=== PATIENT | female | born 1950 | race Caucasian/White ===

== ENCOUNTER 2018-08-08 08:26 | Day surgery (SDC) | payer MEDICARE, BC ==
[2018-08-07 09:53] VITALS: BMI 28.9
[~2018-08-08 08:26] MED LIST: ALPRAZolam 0.25 MG TAB PO PRN; ALPRAZolam 0.5 MG TAB PO PRN; ASPIRIN 325 MG TAB PO ONE; ATORVASTATIN 80 MG TAB PO ONE; NITROGLYCERIN SL TABS 0.4 MG TAB SUBLINGUAL PRN; SODIUM CHLORIDE 0.9% 1,000 ML in EMPTY BAG 1 BAG IV ONE
[2018-08-08] MEDS ORDERED: SODIUM CHLORIDE 0.9% 1,000 ML IV ONE (08:59)
[2018-08-08] MEDS ORDERED: VERAPAMIL 2.5 MG/ML 2 ML AMP ONE (10:44)
[2018-08-08] MEDS ORDERED: HEPARIN SODIUM 1,000 UN/ML (10ML VL) ONE (10:44)
[2018-08-08] MEDS ORDERED: fentaNYL (PF) 50 MCG/ML 2 ML AMP ONE (10:44)
[2018-08-08] MEDS ORDERED: LIDOCAINE 1% INJ 10MG/ML (20 ML MDV) ONE (10:46)
[2018-08-08] MEDS: fentaNYL (PF) 50 MCG/ML 2 ML AMP IV ONE ×2 (10:50→11:29)
[2018-08-08] MEDS: MIDAZOLAM 2 MG/2 ML VIAL IV ONE ×2 (10:51→10:59)
[2018-08-08] MEDS ORDERED: LIDOCAINE 1% INJ 10MG/ML (20 ML MDV) SQ ONE (10:53)
[2018-08-08] MEDS ORDERED: HEPARIN SODIUM 1,000 UN/ML (10ML VL) IV ONE ×2 (10:54)
[2018-08-08] MEDS ORDERED: VERAPAMIL SYRINGE (5 MG/10 ML) INTRAARTER ONE (10:54)
[2018-08-08] MEDS ORDERED: IOPAMIDOL-370 100ML BTL INJ ONE ×3 (11:08→12:11)
[2018-08-08] MEDS ORDERED: CLOPIDOGREL 75 MG TAB ONE (11:10)
[2018-08-08] MEDS ORDERED: METOPROLOL TARTRATE 5 MG/5 ML VIAL IVP ONE ×2 (11:17→11:18)
--- NOTE | 2018-08-08 11:28 | P.CARDCATH ---
Date of Procedure: 08/08/18 Preoperative Diagnosis: New-onset angina Postoperative Diagnosis: Significant lesion involving the RCA in the mid and distal locations Procedure(s) Performed: Left heart catheterization without left ventriculography Description of Procedure: HISTORY: This is a 68-year-old female with history of previous myocardial infarction and a stent placement of the RCA was been experiencing left arm numbness resembling the symptoms that she had prior to the previous myocardial infarction. Patient is advised to have a cardiac catheterization or stress test. Patient preferred to have a cardiac catheterization CONSENT:I have discussed the risks, benefits and alternative therapies for the above-mentioned procedure and for both sedation/analgesia as well as necessary blood product administration, if indicated, as they pertain to this patient. The patient has indicated understanding and acceptance of the risks and procedures discussed. PROCEDURE: Patient was brought to the lab in a fasting state. Patient was given some IV sedation. The right groin is infiltrated with lidocaine and right femoral artery was entered using Seldinger technique. A 6-Yi catheter was left in place and selective coronary arteriography and left ventriculography was performed. Patient tolerated the procedure well. No immediate complications were noted and patient was transferred to [facility] in a stable condition Conscious Sedation: Versed 2mg Fentanyl 50 g Duration 19minutes HEMODYNAMICS: The aortic pressure is about 170/80. Left ankle end-diastolic pressure is about 12-14. There was no gradient across the aortic valve SELECTIVE CORONARY ARTERIOGRAPHY: LEFT MAIN: This is normal in length and free of any occlusive disease THE LEFT ANTERIOR DESCENDING CORONARY ARTERY:. This is a good caliber vessel giving rise to good-sized diagonal branch. Mild plaque noted in the proximal to mid LAD without any critical lesions THE LEFT CIRCUMFLEX AND IS CORONARY ARTERY: This a good caliber vessel giving rise good-sized OM branch. The OM branch is about 30-40% stenosis THE RIGHT CORONARY ARTERY:. This is a good caliber vessel with 2 areas of stenosis involving the mid portions within the stent and distally within the the distal end of the stent extended into the distal portion of the RCA before bifurcation into PDA and PLV LEFT VENTRICULOGRAPHY: Not performed FINAL IMPRESSION:. Critical lesion involving the mid and distal RCA mostly within the stent PLAN:. The stenting of the RCA to be done by Dr. Freeman PROGNOSIS: Fair
[2018-08-08] MEDS ORDERED: CLOPIDOGREL 75 MG TAB PO ONE (11:29)
[2018-08-08] MEDS ORDERED: BIVALIRUDIN 250 MG in SODIUM CHLORIDE 0.9% 50 ML IV ONE (11:34)
[2018-08-08] MEDS ORDERED: BIVALIRUDIN BOLUS 250 MG/50 ML IV ONE (11:34)
[2018-08-08] MEDS ORDERED: NITROGLYCERIN SL TABS 0.4 MG TAB SUBLINGUAL ONE ×2 (11:46→11:47)
[2018-08-08] MEDS ORDERED: NITROGLYCERIN 1000MCG/10ML SYRINGE INTRACORON ONE (11:51)
[2018-08-08] MEDS ORDERED: RX INFO: IV CONTRAST WAS GIVEN 1 EACH MISC MISCELLANE PRN (12:23)
[2018-08-08] MEDS ORDERED: ZOLPIDEM 5 MG TAB PO PRN (12:23)
[2018-08-08] MEDS ORDERED: ATROPINE SULFATE 0.1 MG/ML 10ML SYRINGE IV PRN (12:23)
[2018-08-08] MEDS ORDERED: MAG HYDROX/AL HYDROX/SIMETH 30 ML CUP PO PRN (12:23)
[2018-08-08] MEDS ORDERED: NITROGLYCERIN SL TABS 0.4 MG TAB SUBLINGUAL PRN (12:23)
[2018-08-08] MEDS ORDERED: SODIUM CHLORIDE 0.9% 1,000 ML IV SCH (12:30)
--- NOTE | 2018-08-08 12:48 | PTCA ---
PERCUTANEOUSTRANS CORORONARY ANGIOGRAPHY Mrs. Talley is a 68-year-old female with a known history of coronary artery disease, status post inferior myocardial infarction and stenting in February 2008, who recently has been complaining of episode of discomfort similar to what she had in 2007, underwent cardiac catheterization by Dr. Weiss and was found to have significant obstructive disease involving the distal and mid right coronary artery. In view of that, recommendation was made regarding angioplasty and stenting. The procedure as well as the risks and the complications were discussed with the patient who is in full understanding and agreement. PROCEDURE: A 6-Luxembourgish FR4 guiding catheter introduced in the system after cannulating the right coronary ostium, a 0.014 balanced medium weight J-wire was advanced across the lesion positioned in the right PDA. Following that, a 2.5 x 12 mm Trek balloon was advanced and 2 inflations at 10 atmospheres were done. Following, the balloon was removed and a 2.75 x 15 mm Xience Lora stent was deployed distally and postdilated at 16 atmospheres following that the balloon was removed and a 2.75 x 18 mm Xience Lora stent was advanced in the mid segment and deployed and postdilated at 16 atmospheres and proximal to that stent a 2.75 x 12 mm Xience Lora stent was deployed and postdilated at 16 atmospheres. The balloon was advanced into the mid segment and inflation up to 16 atmospheres were done. Following that and after appropriate wait, the balloon and the guidewire were withdrawn back in the guiding catheter. Images were obtained, repeated. Those images reveal stable successful stenting. At that point, the guiding catheter, the balloon and the guidewire removed. The sheath was removed. Hemostasis was obtained with deployment of a TR band. There was no immediate complication patient was returned to her room in stable condition. Of note, the patient received Angiomax per protocol as well as oral loading dose of clopidogrel. She had no significant chest discomfort, but she had mild EKG changes that resolved at the end of the procedure. RESULTS: 1. Successful stenting of the distal right coronary artery with reduction of stenosis from 80% to 0%. 2. Successful stenting of the mid right coronary artery with reduction of stenosis from 70% to 0%. RECOMMENDATION: Patient will be continued on aspirin, Plavix and statin. The importance of dual antiplatelet treatment was discussed with the patient and her family and they are in full understanding and agreement. Duration of procedure is 29 minutes. MMKINGSTONL / IJN: [id number] /
[2018-08-08] MEDS ORDERED: ACETAMINOPHEN TAB 325 MG TAB PO PRN (16:57)
[2018-08-08] MEDS: GABAPENTIN 300 MG CAP PO SCH (20:08)
[2018-08-09 07:08] LABS: Basophils % (A) 1 %; Eosinophils # (A) 0.3 k/uL (0-0.7); Eosinophils % (A) 4 %; Lymphocytes # (A) 2.7 k/uL (1.0-4.8); Lymphocytes % (A) 33 %; MCH 30.7 pg (25.0-35.0); MCHC 33.2 g/dL (31.0-37.0); MCV 92.5 fL (80.0-100.0); Mean Platelet Volume 6.8; Monocytes # (A) 0.4 k/uL (0-1.0); Monocytes % (A) 5 %; Neutrophils # (A) 4.5 k/uL (1.3-7.7); Neutrophils % (A) 55 %; Platelet Count 229 k/uL (150-450); RBC 3.89 m/uL (3.80-5.40); RDW 12.9 % (11.5-15.5); WBC 8.3 k/uL (3.8-10.6)
[2018-08-09 07:14] LABS: Calcium 8.8 mg/dL (8.4-10.2); Potassium 4.1 mmol/L (3.5-5.1)
[2018-08-09] MEDS ORDERED: PANTOPRAZOLE 40 MG TABLET PO SCH (07:30)
[2018-08-09] MEDS: GABAPENTIN 300 MG CAP PO SCH (07:38)
[2018-08-09] MEDS ORDERED: NON-FORMULARY DRUG (Vitamin B Complex [Vitamin B Complex] 1 EACH) PO SCH (09:00)
[2018-08-09] MEDS ORDERED: METOPROLOL SUCCINATE (ER) 25 MG TAB.ER.24H PO SCH (09:00)
[2018-08-09] MEDS ORDERED: SERTRALINE 50 MG TAB PO SCH (09:00)
[2018-08-09] MEDS ORDERED: ASPIRIN 81 MG PO SCH (09:00)
[2018-08-09] MEDS ORDERED: busPIRone HCl 5 MG TAB PO SCH (09:00)
[2018-08-09] MEDS ORDERED: ATORVASTATIN 80 MG TAB PO SCH (09:00)
[2018-08-09] MEDS ORDERED: LISINOPRIL 2.5 MG TAB PO SCH (09:00)
[2018-08-09] MEDS ORDERED: LORATADINE 10 MG TAB PO SCH (09:00)
[2018-08-09] MEDS ORDERED: buPROPion SR 150 MG TABLET.ER PO SCH (09:00)
--- NOTE | 2018-08-09 09:05 | P.DS ---
Providers Date of admission: 08/08/2018 Attending physician: Carl Weiss Consults: 08/08/18 12:23 Consult Physician Routine Consulting Provider: [facility] Consult Reason/Comments: Post Interventional patient Do you want consulting provider notified?: Already Contacted Placement Type Exists?: Yes Primary care physician: Benedicto [facility] Course: This 68-year-old female with history of previous ischemic heart disease and multiple stent placement in the RCA, was brought in for cardiac catheterization because of symptoms of numbness in the left arm suggestive of angina. Patient had a cardiac catheterization and was found to have critical lesion in the mid RCA within the stent and also in the distal RCA. Patient had a multiple stent placement by Dr. Freeman. Patient has done well. Her puncture site in the right wrist appear to be healing well. No hematoma and pulses intact. Lungs are clear. Heart is regular. No JVD. Patient is complaining of some vague chest discomfort which is very mild and is mildly is respirophasic. Patient will be discharged home. Continue current medical therapy. Follow-up in the office in one week. Plan - Discharge Summary Discharge Rx Participant: Yes New Discharge Prescriptions: New Atorvastatin [Lipitor] 80 mg PO DAILY #90 tab Nitroglycerin Sl Tabs [Nitrostat] 0.4 mg SUBLINGUAL Q5M PRN #25 tab PRN Reason: Chest Pain Clopidogrel [Plavix] 75 mg PO DAILY #90 tab Continue Metoprolol Succinate (ER) [Toprol XL] 25 mg PO DAILY Gabapentin [Neurontin] 300 mg PO BID busPIRone HCL 15 mg PO DAILY Loratadine [Claritin] 10 mg PO DAILY Lisinopril [Zestril] 2.5 mg PO DAILY Sertraline [Zoloft] 50 mg PO DAILY Aspirin EC [Ecotrin Low Dose] 81 mg PO DAILY Ascorbic Acid [Vitamin C] 500 mg PO DAILY buPROPion HCL [Wellbutrin SR] 150 mg PO DAILY Vitamin B Complex 1 each PO DAILY Omeprazole 20 mg PO DAILY Multivitamins, Thera [Multivitamin (formulary)] 1 each PO DAILY Discontinued Atorvastatin [Lipitor] 20 mg PO HS Discharge Medication List Ascorbic Acid [Vitamin C] 500 mg PO DAILY 08/07/18 [History] Aspirin EC [Ecotrin Low Dose] 81 mg PO DAILY 08/07/18 [History] Gabapentin [Neurontin] 300 mg PO BID 08/07/18 [History] Lisinopril [Zestril] 2.5 mg PO DAILY 08/07/18 [History] Loratadine [Claritin] 10 mg PO DAILY 08/07/18 [History] Metoprolol Succinate (ER) [Toprol XL] 25 mg PO DAILY 08/07/18 [History] Multivitamins, Thera [Multivitamin (formulary)] 1 each PO DAILY 08/07/18 [History] Omeprazole 20 mg PO DAILY 08/07/18 [History] Sertraline [Zoloft] 50 mg PO DAILY 08/07/18 [History] Vitamin B Complex 1 each PO DAILY 08/07/18 [History] buPROPion HCL [Wellbutrin SR] 150 mg PO DAILY 08/07/18 [History] busPIRone HCL 15 mg PO DAILY 08/07/18 [History] Atorvastatin [Lipitor] 80 mg PO DAILY #90 tab 08/09/18 [Rx] Clopidogrel [Plavix] 75 mg PO DAILY #90 tab 08/09/18 [Rx] Nitroglycerin Sl Tabs [Nitrostat] 0.4 mg SUBLINGUAL Q5M PRN #25 tab 08/09/18 [Rx] Follow up Appointment(s)/Referral(s): Carl Weiss MD [STAFF PHYSICIAN] - 08/17/18 9:15 am () Patient Instructions/Handouts: Heart Healthy Diet (DC), Safe Use of Antiplatelet Medication (DC), Coronary Intravascular Stent Placement (DC) Discharge Disposition: HOME SELF-CARE
[2018-08-09 10:59] VITALS: BP 144/83; PULSE 81; RESP 20; TEMP 98.2
[2018-08-09] MEDS ORDERED: CLOPIDOGREL 75 MG TAB PO SCH (11:00)
[2018-08-09] MEDS ORDERED: MULTIVITAMINS, THERA 1 EACH TAB PO SCH (12:00)
[2018-08-09] MEDS ORDERED: ASCORBIC ACID 500 MG TAB PO SCH (12:00)
== END 2018-08-09 13:08 | disposition home or self-care (01) ==
LOC: CATHCVL 08:26 → 3SCARD 12:08 → CATHCVL 08-09 13:08
PROVIDERS: ATTEND Internal Medicine Cardiovascular Disease
DX: I25.110 Atherosclerotic heart disease of native coronary artery with unstable angina pectoris (principal); I25.2 Old myocardial infarction; I10 Essential (primary) hypertension; E78.5 Hyperlipidemia, unspecified; E78.00 Pure hypercholesterolemia, unspecified; Z95.5 Presence of coronary angioplasty implant and graft; Z79.899 Other long term (current) drug therapy; Z79.82 Long term (current) use of aspirin; Z88.5 Allergy status to narcotic agent
CPT/HCPCS: 93458; 80048; 85025; C9600; C1769 ×2; C1887; C1894; C1874; J2250; S0106; J2001; J3010; J1644; J0583; Q9967